=== PATIENT | female | born 1990 | race Caucasian/White ===

== ENCOUNTER 2020-06-08 14:43 | Emergency (ER) | payer OTHER ==
[~2020-06-08] VITALS: Ht 160 cm; Wt 103.5 kg
[2020-06-08 14:48] VITALS: BP 130/82
--- NOTE | 2020-06-08 15:06 | NUR ---
PT AT ED FOR A TEST. PT STATES SHE HAS NOT STARTED HER PERIOD AND FEELS SHE MAY BE . PT NOT HAVING ANY PHYSICAL SYMPTOMS CURRENTLY.
--- NOTE | 2020-06-08 15:32 | NUR ---
PT DECLINING CARE AT THE ER AFTER TALKING WITH P. PT AND FAMILY AMBULATED TO DC AREA, STEADY GAIT. PT ADVISED TO COME TO ER IF THEY FELT WORSE.
== END 2020-06-08 15:35 | disposition home or self-care (01) ==
LOC: ED 15:15
DX: Z00.00 Encounter for general adult medical examination without abnormal findings (principal)
CPT/HCPCS: 99281